=== PATIENT | female | born 2000 | race Caucasian/White ===

== ENCOUNTER 2022-01-23 19:45 | Observation (INO) | payer BC, SELFPAY ==
[2022-01-23 19:47] VITALS: BP 148/118; PULSE 137; RESP 14; TEMP 36.5; O2SAT 97; BMI 34.2
--- NOTE | 2022-01-23 19:59 | EX.ED.DYSGE1 ---
HPI History of Present Illness Chief Complaint: Abscess Detail of Chief Complaint: Left axilla abscess Informant: patient Narrative Narrative: Patient presents to the emergency department with complaint of an abscess in her left armpit that she has had for about a month. Patient was seen in urgent care and referred to the emergency department for incision and drainage. Patient also states that she has had diarrhea for about a week and a half. Patient states she recently also had mono. She denies any fevers or chills. Prior similar symptoms: No PFSH PFSH Home Medications NK 01/23/22 [History Last Taken Unknown] Allergy/AdvReac Type Severity Reaction Status Date / Time amoxicillin AdvReac Rash Verified 01/23/22 19:47 Social History Smoking Status: Never smoker ROS ROS ED Constitutional Constitutional ED: Reports systems reviewed and no addt'l complaints, except as documented; Denies body ache(s), change in weight or chills Eyes Eyes: Denies acute decrease in peripheral vision, change in vision, double vision or loss of vision ENT ENT ED: Reports none; Denies ear pain, lip swelling, loss taste/smell, neck pain, otalgia or sore throat Cardiovascular Cardiovascular: Reports none; Denies abdominal pain, chest pain with activity, leg edema, lightheadedness, palpitations, rapid heart rate or syncope Respiratory/Chest Respiratory/Chest: Reports none; Denies change in mental status, dry cough, dyspnea, hemoptysis, shortness of breath at rest or shortness of breath with exertion Gastrointestinal Gastrointestinal: Reports none and diarrhea; Denies abdominal pain, change in stool character, hematemesis, hematochezia, melena, rectal bleeding or vomiting Genitourinary Genitourinary ED: Reports none; Denies abdominal discomfort, anuria, dysuria, genital pain or polyuria Musculoskeletal Musculoskeletal: Reports none; Denies arthralgias, back pain, difficulty walking, extremity pain, muscle weakness or myalgias Integumentary Reports none, abscess and other Details: Left axilla abscess ; Denies rash Neurologic Neurologic: Reports none; Denies abnormal gait, confusion, focal weakness, frequent falls, headache(s), loss of vision, numbness, paresthesias, radicular pain, vertigo or weakness Psychiatric Psychiatric: Reports systems reviewed and no addt'l complaints, except as documented and none; Denies behavioral changes, confusion, difficulty concentrating, hallucinations, suicidal ideation, tactile hallucinations or visual hallucinations Endocrine Endocrinology: Denies none, cold intolerance, excessive sweating, fatigue or heat intolerance Hematologic/Lymphatic Hematologic/Lymphatic: Reports none; Denies anemia, easy bleeding or easy bruising Allergic/Immunologic Allergic/Immunologic ED: Denies as per HPI, none, lip swelling, mouth swelling, throat swelling, tongue swelling or hives EXAM Physical Exam Const Vital Signs: 01/23/22 19:47 Temperature 97.7 F L Temperature Source Temporal Pulse Rate 137 H Respiratory Rate 14 Blood Pressure 148/118 H Blood Pressure Mean 128 Pulse Ox 97 Oxygen Delivery Method Room Air Positive well nourished and well developed General Appearance ED: well developed and NAD HEENT Reports TM's clear and moist mucous membranes normocephalic and atraumatic; Negative for trauma or tenderness Tympanic Membrane ED: Yes TM's clear Eyes PERRL and EOMs intact bilaterally General Eye ED: Negative for pale conjunctiva or scleral icterus Neck no lymphadenopathy, supple and no JVD General: Negative for tenderness Chest Wall inspection of chest normal and palpation of chest normal Chest: Negative for tenderness Resp normal respiratory effort and clear to auscultation bilaterally Effort and Inspection: Negative for respiratory distress or pain with movement Auscultation: Negative for rhonchi, wheezes or diminished lung sounds Cardio regular rate, regular rhythm, S1 normal heart sound, S2 normal heart sound and no murmurs Peripheral Pulses: pulses 2+ throughout GI normal to inspection, nondistended, normoactive bowel sounds, soft to palpation, non-tender, non-distended and no masses Back/Spine no CVA tenderness and no thoracic nor lumbar tenderness Extremity Extremity Narrative: Evaluation of the left axilla does reveal a abscess at the inferior portion of the axilla with fluctuance and erythema and cellulitic changes. Area of erythema measures approximately 7 cm in diameter. General Extremety ED: Negative for edema General Extremity: Negative for edema Neuro oriented x3, CN's II-XII intact bilaterally, no sensory deficits noted and gait normal Sensorium / Orientation: awake, alert, oriented to person, oriented to place and oriented to time Motor Exam: strength 5/5 throughout and strength abnormal Psych mental status grossly normal Skin no rashes or lesions noted and no wounds MDM MDM MDM Narrative Medical decision making narrative: Established on arrival. Patient was given a liter normal saline bolus. Patient noted to have hypokalemia and was ordered IV potassium. Case will be discussed with hospitalist evaluate patient for admission. Lab Data Attestation: I reviewed the patient's lab results. Labs: Laboratory Results - last 24 hr 01/23/22 01/23/22 01/23/22 20:25 21:27 21:27 WBC 9.6 RBC 4.94 Hgb 13.9 Hct 38.9 MCV 78.7 L MCH 28.1 MCHC 35.7 RDW Std Deviation 39.2 RDW Coeff of Buddy 13.9 Plt Count 311 MPV 9.9 Immature Gran % (Auto) 0.300 Neut % (Auto) 60.3 Lymph % (Auto) 27.1 [place] % (Auto) 11.1 H Eos % (Auto) 0.8 Baso % (Auto) 0.4 Absolute Neuts (auto) 5.8 Absolute Lymphs (auto) 2.61 Nucleated RBC % 0 Sodium Cancelled 138 Potassium Cancelled 2.4 L* Chloride Cancelled 105 Carbon Dioxide Cancelled 22.0 Anion Gap Cancelled 11 BUN Cancelled 8 Creatinine Cancelled 0.62 Estim Creat Clear Calc Cancelled 113.52 Est GFR (MDRD) Af Amer Cancelled 154 Est GFR (MDRD) Non-Af Cancelled 128 BUN/Creatinine Ratio Cancelled 12.8 Glucose Cancelled 93 Calcium Cancelled 8.2 L Procedures Other Procedures Procedure(s): Incision and drainage of left axilla abscess-area sterilely draped and prepped. Skin cleansed with Shur-Clens. Skin anesthetized locally with 1% lidocaine total of 8 cc. Using an 11 blade a 3 cm incision was made into the most fluctuant portion of the suspected abscess and immediately had free-flowing purulent debris expressing from the wound. I was able to milk the wound until no more purulent debris were expressed. Clean dressing was applied. Patient tolerated procedure well. Discharge Plan Triage Chief Complaint: Abscess ED Provider: Lindsey Myers Dx/Rx/DC Orders Clinical Impression: Acute hypokalemia, Diarrhea, Abscess of axilla, left, Tachycardia Prescriptions: No Action NK RF: 0 Primary Care Provider: Care Physician,No Primary Referrals: Care Physician,No Primary [Primary Care Provider] - Disposition Disposition: [facility]
[2022-01-23] MEDS: Lidocaine 1% (20 ml mdv) 20 ML Vial 6 ML INFILT (20:29)
[2022-01-23] MEDS: 0.9% Normal Saline 1,000 ML 1000 ML IV (20:29)
--- NOTE | 2022-01-23 20:40 | NURSING ---
IV in but will not draw enough blood for lab. Will given fluids and try again after procedure done.
[2022-01-23 21:40] LABS: Absolute Lymphocyte Count 2.61 X10^3/uL (0.83-4.51); Absolute Neutrophil Count 5.8 X10^3/uL (2.0-7.7); Basophil# 0.04 X10^3/uL; Basophil% 0.4 % (0-1); Eosinophil# 0.08 X10^3/uL; Eosinophils% 0.8 % (0-5); Hematocrit 38.9 % (37-47); Hemoglobin 13.9 g/dL (12.0-15.0); Lymphocyte # 2.61 X10^3/ul (0.83-4.51); Lymphocyte % 27.1 % (19-41); Mean Corp Hgb Conc 35.7 g/dL (32-36); Mean Corpuscular Hgb 28.1 pg (27.0-32.0); Mean Corpuscular Volume 78.7 fL (81-99); Mean Platelet Vol. 9.9 fl (6.2-12.0); Monocyte# 1.07 X10^3/uL; Monocyte% 11.1 % (0-10); NRBC Flagged by Analyzer 0 % (0-5); Neutrophil % 60.3 % (47-70); POSITIVE MORPHOLOGY YES; Platelet Count 311 K/mm3 (150-450); RBC Distribution Width CV 13.9 % (11.6-14.6); RBC Distribution Width SD 39.2 fl (35.1-43.9); Red Blood Count 4.94 M/mm3 (4.2-5.4); White Blood Count 9.6 K/mm3 (4.4-11.0)
[2022-01-23 21:45] LABS: Differential Indicated SCAN CRITERIA MET
[2022-01-23 22:01] LABS: Anion Gap 11 (5-15); BUN 8 mg/dL (7-18); BUN/Creat Ratio 12.8 RATIO (10-20); Calcium,Total 8.2 mg/dL (8.5-10.1); Chloride 105 mmol/L (98-107); Creatinine, Serum 0.62 mg/dL (0.55-1.02); EST Glomerular Filtration Rate 128 mL/min (>60); Est Glom Filt Rate - Afr Amer 154 mL/min (>60); Estimated Creatinine Clearance 113.52 ml/min; Glucose 93 mg/dL (74-106); Potassium 2.4 mmol/L (3.5-5.1); Sodium Level 138 mmol/L (136-145)
[2022-01-23 22:08] LABS: Differential Comment SCANNED
[2022-01-23] MEDS: Cephalexin 250 MG Capsule 500 MG PO (22:23)
[2022-01-23] MEDS: Potassium Chloride 10mEq/100mL 10 MEQ/100 ML IV.SOLN. 100 MEQ IV BOLUS (22:43)
[2022-01-23 22:46] VITALS: RESP 17
[2022-01-23 22:47] LABS: Magnesium 1.6 mg/dL (1.6-2.6); Phosphorus 2.7 mg/dL (2.5-4.9)
[2022-01-23 22:50] VITALS: BP 121/93; PULSE 116; RESP 17; TEMP 36.9; O2SAT 100
--- NOTE | 2022-01-23 22:51 | PCM.HP.STD ---
Documented by User: FABIAN RosalesC 01/23/22 23:14 HPI - General General Date of Admission: 01/23/22 Date of Service: 01/23/22 Chief Complaint: Nausea vomiting and diarrhea, abscess of the left armpit HPI Narrative CHIKI SÁNCHEZ, is a 21 F who presents with initial complaints of abscess in left armpit. Abscess was incised and drained in ER. Of note patient also states that she was diagnosed with mono approximately 1 month ago. Patient states 2 weeks ago she began to feel better and approximately 1 week ago she began with nausea vomiting and diarrhea which has been going on intermittently for the past week. Initial lab values show severe hypokalemia at 2.4 likely secondary to her nausea vomiting and diarrhea. Phos and mag were within normal range. Patient denies any medical or surgical history. Patient does report that she has an IUD. [facility] Medical History (Updated 01/23/22 @ 23:35 by Natalie Hager) Migraines Home Medications NK 01/23/22 [History Last Taken Unknown] Allergy/AdvReac Type Severity Reaction Status Date / Time amoxicillin AdvReac Rash Verified 01/23/22 19:47 Family History no significant family his no significant family history Surgical History no surgical history no surgical history Social History Smoking Status: Never smoker ROS Constitutional Constitutional: Reports malaise; Denies anorexia, chills, fatigue, fever(s) or weakness Cardiovascular Cardiovascular: Denies chest pain, edema, palpitations or syncope Respiratory/Chest Respiratory/Chest: Denies cough, shortness of breath at rest, shortness of breath with exertion or wheezing Gastrointestinal Gastrointestinal: Reports diarrhea, nausea and vomiting; Denies abdominal pain or constipation Genitourinary Genitourinary: Denies dysuria Musculoskeletal Musculoskeletal: Denies back pain, extremity pain, joint pain or joint stiffness Integumentary Integumentary: Reports wounds; Denies dry skin Neurologic Neurologic: Denies abnormal gait, abnormal speech, confusion or dizziness Psychiatric Psychiatric: Denies anxiety or depression Endocrine Endocrinology: Denies change in body appearance Hematologic/Lymphatic Hematologic/Lymphatic: Denies anemia Vital Signs Vital Signs Vital Signs: 01/23/22 19:47 01/23/22 22:46 Temperature 97.7 F L Temperature Source Temporal Pulse Rate 137 H Respiratory Rate 14 17 Blood Pressure 148/118 H Blood Pressure Mean 128 Pulse Ox 97 Oxygen Delivery Method Room Air Weight Weight: 187 lb Body Mass Index (BMI) 34.2 Physical Exam Const alert, oriented x3 and no apparent distress General Appearance: cooperative HEENT normocephalic and head/scalp atraumatic Eyes conjunctivae normal and no scleral icterus Neck no lymphadenopathy and supple General: trachea midline Resp normal respiratory effort, normal air movement and clear to auscultation bilaterally Cardio regular rate, regular rhythm, S1 normal heart sound, S2 normal heart sound and peripheral pulses 2+ throughout GI normal to inspection, nondistended, normoactive bowel sounds, soft to palpation and non-tender Auscultation: hyperactive bowel sounds Extremity normal capillary refill and no clubbing, cyanosis or edema General Extremity: no tenderness to palpation of joints or extremities Skin Skin Narrative: Incision and drainage to left armpit from prior abscess, drained by ER physician. Dressing dry and intact Wounds: wounds noted Neuro no focal motor deficits and no sensory deficits noted Motor Exam: Negative for general weakness Psych thought process normal, cooperative and affect normal Appearance: appropriate Results Lab / Micro Data Result Diagrams: 01/23/22 21:27 01/23/22 21:27 Labs: Laboratory Results - last 24 hr 01/23/22 20:25: Sodium Cancelled, Potassium Cancelled, Chloride Cancelled, Carbon Dioxide Cancelled, Anion Gap Cancelled, BUN Cancelled, Creatinine Cancelled, Estim Creat Clear Calc Cancelled, Est GFR (MDRD) Af Amer Cancelled, Est GFR (MDRD) Non-Af Cancelled, BUN/Creatinine Ratio Cancelled, Glucose Cancelled, Calcium Cancelled 01/23/22 21:27: WBC 9.6, RBC 4.94, Hgb 13.9, Hct 38.9, MCV 78.7 L, MCH 28.1, MCHC 35.7, RDW Std Deviation 39.2, RDW Coeff of Buddy 13.9, Plt Count 311, MPV 9.9, Immature Gran % (Auto) 0.300, Neut % (Auto) 60.3, Lymph % (Auto) 27.1, [place] % (Auto) 11.1 H, Eos % (Auto) 0.8, Baso % (Auto) 0.4, Absolute Neuts (auto) 5.8, Absolute Lymphs (auto) 2.61, Nucleated RBC % 0, Differential Comment SCANNED 01/23/22 21:27: Sodium 138, Potassium 2.4 L*, Chloride 105, Carbon Dioxide 22.0, Anion Gap 11, BUN 8, Creatinine 0.62, Estim Creat Clear Calc 113.52, Est GFR (MDRD) Af Amer 154, Est GFR (MDRD) Non-Af 128, BUN/Creatinine Ratio 12.8, Glucose 93, Calcium 8.2 L 01/23/22 21:27: Phosphorus 2.7, Magnesium 1.6 Assessment & Plan Assessment/Plan (1) Acute hypokalemia: (2) Diarrhea: QUALIFIERS: Diarrhea type: presumed infectious Qualified Code(s): R19.7 - Diarrhea, unspecified (3) Abscess of axilla, left: PLAN: 1. Acute hypokalemia secondary to excessive diarrhea and vomiting -Admit to [facility] with telemetry secondary to administration of potassium chloride -Potassium chloride 40 mEq IV initiated by ER physician -Magnesium sulfate 2 g IV x1 -Potassium chloride 40 mEq p.o. x1 -CBC, BMP, magnesium, phosphorus level in the a.m. -Enteric pathogen panel ordered -Normal saline 100 mL/h ordered 2. Abscess of left axilla -Patient received Keflex in ER, will continue -Maintain dressing to left armpit and change every 8 hours and as needed DVT prophylaxis-not indicated This patient was seen by Silvia Wilson NP-C under the supervision of Dr. Mclaughlin. 27 minutes spent in clinical coordination of patient's plan of care. Documented by User: Dr. Jef Mclaughlin MD 01/24/22 00:08 HPI - General General Date of Admission: 01/23/22 [facility] Medical History (Updated 01/23/22 @ 23:35 by Natalie Hager) Migraines Home Medications NK 01/23/22 [History Last Taken Unknown] Allergy/AdvReac Type Severity Reaction Status Date / Time amoxicillin AdvReac Rash Verified 01/23/22 19:47 Family History no significant family his Surgical History no surgical history Social History Smoking Status: Never smoker Results Lab / Micro Data Result Diagrams: 01/23/22 21:27 01/23/22 21:27 Charges/Coding Addendum Addendum: Dr. Mclaughlin: I personally reviewed the chart and examined the patient, and agree with the above findings. 21-year-old female presented with an axillary abscess that was drained in the ER, was started on Keflex, however she was also noticed to have a potassium of 2.4. She has been having some diarrhea for about a week. She did had mono prior to this. Magnesium was 1.6 and phosphorus was normal. We will plan on collecting stool samples and continuing with IV fluids and replacing her potassium as well as her magnesium and rechecking electrolytes in the morning. Clinical time spent in all aspects of patient care: 30 minutes Visit Charges OBSV E&M: 57326 Initial observation care L2
[2022-01-23 23:16] VITALS: BMI 35.0
[2022-01-23 23:18] VITALS: BP 133/81; PULSE 109; RESP 18; TEMP 37.4; O2SAT 98
[2022-01-24] VITALS (8 sets, daily range): BP systolic 123–130; BP diastolic 64–70; PULSE 86–118; RESP 18; TEMP 36.8–37.3; O2SAT 100
[2022-01-24] MEDS: Potassium Chloride 10mEq/100mL 10 MEQ/100 ML IV.SOLN. 50 MEQ IV BOLUS ×7 (01:08→16:32)
[2022-01-24] MEDS: Cephalexin 500 MG Capsule PO ×3 (05:22→18:05)
[2022-01-24 06:17] LABS: Absolute Lymphocyte Count 3.09 X10^3/uL (0.83-4.51); Absolute Neutrophil Count 4.8 X10^3/uL (2.0-7.7); Basophil# 0.04 X10^3/uL; Basophil% 0.4 % (0-1); Eosinophil# 0.13 X10^3/uL; Eosinophils% 1.4 % (0-5); Hemoglobin 14.3 g/dL (12.0-15.0); Lymphocyte # 3.09 X10^3/ul (0.83-4.51); Lymphocyte % 33.3 % (19-41); Mean Corp Hgb Conc 35.8 g/dL (32-36); Mean Corpuscular Hgb 28.7 pg (27.0-32.0); Mean Corpuscular Volume 80.3 fL (81-99); Mean Platelet Vol. 10.2 fl (6.2-12.0); Monocyte# 1.19 X10^3/uL; Monocyte% 12.8 % (0-10); NRBC Flagged by Analyzer 0 % (0-5); Neutrophil # 4.81 X10^3/uL (2.7-7.7); Neutrophil % 51.9 % (47-70); POSITIVE MORPHOLOGY YES; Platelet Count 350 K/mm3 (150-450); RBC Distribution Width CV 14.1 % (11.6-14.6); RBC Distribution Width SD 41.1 fl (35.1-43.9); Red Blood Count 4.98 M/mm3 (4.2-5.4); White Blood Count 9.3 K/mm3 (4.4-11.0)
[2022-01-24 06:20] LABS: Differential Indicated SCAN CRITERIA MET
[2022-01-24 06:42] LABS: Differential Comment SCANNED
[2022-01-24 06:44] LABS: Atypical Lymphocyte RARE %
[2022-01-24 06:48] LABS: Anion Gap 10 (5-15); BUN 6 mg/dL (7-18); BUN/Creat Ratio 13.5 RATIO (10-20); Chloride 103 mmol/L (98-107); Creatinine, Serum 0.44 mg/dL (0.55-1.02); EST Glomerular Filtration Rate 188 mL/min (>60); Est Glom Filt Rate - Afr Amer 228 mL/min (>60); Estimated Creatinine Clearance 152.62 ml/min; Glucose 97 mg/dL (74-106); Magnesium 2.6 mg/dL (1.6-2.6); Phosphorus 3.4 mg/dL (2.5-4.9); Potassium 3.1 mmol/L (3.5-5.1); Sodium Level 136 mmol/L (136-145)
--- NOTE | 2022-01-24 07:27 | PN.HOSP_ITS ---
Subjective Subjective Patient is a 21-year-old lady who presented with left axilla abscess which was drained in the ED. She also did complain of a week history of diarrhea and was found to have significant electrolyte abnormalities subsequently admitted to regular nursing floor for further management Objective Data Objective Data Vital Signs: Vital Signs Temp Pulse Resp BP Pulse Ox 98.3 F 88 18 130/65 H 100 01/24/22 03:19 01/24/22 03:19 01/24/22 03:19 01/24/22 03:19 01/24/22 03:19 Oxygen Delivery Method Room Air Weight: 86.4 kg Body Mass Index (BMI) 35.0 Intake & Output: Intake and Output for Last 24 Hours 01/22/22 01/23/22 01/24/22 23:59 23:59 23:59 Intake Total 1000 / 1000 906 / 906 Balance 1000 / 1000 906 / 906 Lab / Micro Data Result Diagrams: 01/24/22 05:36 01/24/22 05:36 Labs: Laboratory Results - last 24 hr 01/23/22 20:25: Sodium Cancelled, Potassium Cancelled, Chloride Cancelled, Carbon Dioxide Cancelled, Anion Gap Cancelled, BUN Cancelled, Creatinine Cancelled, Estim Creat Clear Calc Cancelled, Est GFR (MDRD) Af Amer Cancelled, Est GFR (MDRD) Non-Af Cancelled, BUN/Creatinine Ratio Cancelled, Glucose Cancelled, Calcium Cancelled 01/23/22 21:27: WBC 9.6, RBC 4.94, Hgb 13.9, Hct 38.9, MCV 78.7 L, MCH 28.1, MCHC 35.7, RDW Std Deviation 39.2, RDW Coeff of Buddy 13.9, Plt Count 311, MPV 9.9, Immature Gran % (Auto) 0.300, Neut % (Auto) 60.3, Lymph % (Auto) 27.1, [place] % (Auto) 11.1 H, Eos % (Auto) 0.8, Baso % (Auto) 0.4, Absolute Neuts (auto) 5.8, Absolute Lymphs (auto) 2.61, Nucleated RBC % 0, Differential Comment SCANNED 01/23/22 21:27: Sodium 138, Potassium 2.4 L*, Chloride 105, Carbon Dioxide 22.0, Anion Gap 11, BUN 8, Creatinine 0.62, Estim Creat Clear Calc 113.52, Est GFR (MDRD) Af Amer 154, Est GFR (MDRD) Non-Af 128, BUN/Creatinine Ratio 12.8, Glucose 93, Calcium 8.2 L 01/23/22 21:27: Phosphorus 2.7, Magnesium 1.6 01/24/22 05:36: WBC 9.3, RBC 4.98, Hgb 14.3, Hct 40.0, MCV 80.3 L, MCH 28.7, MC HC 35.8, RDW Std Deviation 41.1, RDW Coeff of Buddy 14.1, Plt Count 350, MPV 10.2, Immature Gran % (Auto) 0.200, Neut % (Auto) 51.9, Lymph % (Auto) 33.3, [place] % (Auto) 12.8 H, Eos % (Auto) 1.4, Baso % (Auto) 0.4, Absolute Neuts (auto) 4.8, Absolute Lymphs (auto) 3.09, Nucleated RBC % 0, Differential Comment SCANNED, Atypical Lymphocytes RARE 01/24/22 05:36: Sodium 136, Potassium 3.1 L, Chloride 103, Carbon Dioxide 23.0, Anion Gap 10, BUN 6 L, Creatinine 0.44 L, Estim Creat Clear Calc 152.62, Est GFR (MDRD) Af Amer 228, Est GFR (MDRD) Non-Af 188, BUN/Creatinine Ratio 13.5, Glucose 97, Calcium 8.0 L, Phosphorus 3.4, Magnesium 2.6 Physical Exam Narrative GENERAL: cooperative HEENT: Atraumatic; EYES; Anicteric, Normal Conjunctiva NECK; supple, normal thyroid, RESPIRATORY: Diminished to auscultation CARDIOVASCULAR: Regular S1 S2, GI: soft, normoactive bowel sounds, : No Renal angle tenderness; EXTREMITIES: Left axilla abscess MUSCULOSKELETAL: no muscle wasting NEURO: Awake; no lateralizing signs. SKIN: No Rash PSYCH; Flat affect Assessment & Plan Assessment/Plan (1) Acute hypokalemia: (2) Diarrhea: QUALIFIERS: Diarrhea type: presumed infectious Qualified Code(s): R19.7 - Diarrhea, unspecified (3) Abscess of axilla, left: PLAN: Patient is a 21-year-old lady who presented with left axilla abscess which was drained in the ED. She also did complain of a week history of diarrh ea and was found to have significant electrolyte abnormalities subsequently admitted to regular nursing floor for further management 1. Left axilla abscess ? Patient had seen and drainage performed in the ED placed on Keflex 2. Acute gastroenteritis ? Treated symptomatically stool studies since 3. Hypokalemia ? Secondary to above corrected per protocol 4. Class II obesity with BMI of 35.1 ? Weight loss advised 5. DVT prophylaxis Low risk did encourage early ambulation Charges/Coding Visit Charges OBSV E&M: 06800 Subsequent observation care L2
[2022-01-24] MEDS: 0.9% Normal Saline 1,000 ML 100 ML IV (09:03)
[2022-01-24] MEDS: Potassium Chloride Oral Soln 20 MEQ/15 ML UDC 40 MEQ PO (09:04)
--- NOTE | 2022-01-24 11:43 | DS.PCM_ITS ---
Providers Date of Admission: 01/23/22 Primary Care Physician: Allyn Primary Care Phys Reason For Visit: HYPOKALEMIA AND DIARRHEA Diagnosis Discharge Diagnosis (1) Acute hypokalemia: Status: Acute Code(s): E87.6 - Hypokalemia (2) Diarrhea: Status: Acute Code(s): R19.7 - Diarrhea, unspecified Qualifiers: Diarrhea type: presumed infectious Qualified Code(s): R19.7 - Diarrhea, unspecified (3) Abscess of axilla, left: Status: Acute Code(s): L02.412 - Cutaneous abscess of left axilla Medications at Discharge Home Medications NK 01/23/22 potassium chloride [Klor-Con M20] 20 meq PO DAILY #7 tab 01/24/22 sulfamethoxazole-trimethoprim [Bactrim DS] 1 tab PO BID #20 tab 01/24/22 Hospital Course Summary of Care Provided Minutes Spent on Discharge: 35 Hospital Course: Patient is a 21-year-old lady who presented with left axilla abscess which was drained in the ED. She also did complain of a week history of diarrhea and was found to have significant electrolyte abnormalities subsequently admitted to regular nursing floor for further management 1. Left axilla abscess ? Patient had seen and drainage performed in the ED -Patient was discharged home on Bactrim DS 2. Acute gastroenteritis ? Treated symptomatically stool studies since 3. Hypokalemia ? Secondary to above corrected per protocol 4. Class II obesity with BMI of 35.1 ? Weight loss advised 5. DVT prophylaxis Low risk did encourage early ambulation Physical Exam Narrative GENERAL: cooperative HEENT: Atraumatic; EYES; Anicteric, Normal Conjunctiva NECK; supple, normal thyroid, RESPIRATORY: Diminished to auscultation CARDIOVASCULAR: Regular S1 S2, GI: soft, normoactive bowel sounds, : No Renal angle tenderness; EXTREMITIES: Left axilla abscess MUSCULOSKELETAL: no muscle wasting NEURO: Awake; no lateralizing signs. SKIN: No Rash PSYCH; Flat affect Medical Records Data Medical Nutrition Assessment Dietitian: Malnutrition Criteria Met Start: 01/24/22 10:39 Freq: Status: Active Protocol: Document 01/24/22 10:39 AG (Rec: 01/24/22 10:39 AG [id number]) Nutrition Malnutrition Evidence of Malnutrition Exists Yes Malnutrition (severe): Acute Illness/Injury Evidenced By Suboptimal Energy Intake ( Severe),Weight Loss (Severe) Clinical Problem Acute Disease or Injury Related Malnutrition Etiology severe, acute malnutrition r/t inadequate energy intake w/ GI dysfunction Signs/Symptoms as evidenced by unintentional wt loss of 19.5#/9.2% x 1 month, estimated PO intake meeting <75% of estimated energy needs x 1 month Status Active Problem Recommendation Dietitian Recommendations/Changes continue regular diet and ensure enlive 120mL 4x/day w/ medpass as tolerated given acute malnutrition Weight / BMI Weight Weight: 86.4 kg Body Mass Index (BMI) 35.0 ABG / Lab / Microbiology Data Result Diagrams: 01/24/22 05:36 01/24/22 05:36 Laboratory: Laboratory Results - last 24 hr 01/23/22 20:25: Sodium Cancelled, Potassium Cancelled, Chloride Cancelled, Carbon Dioxide Cancelled, Anion Gap Cancelled, BUN Cancelled, Creatinine Canc elled, Estim Creat Clear Calc Cancelled, Est GFR (MDRD) Af Amer Cancelled, Est GFR (MDRD) Non-Af Cancelled, BUN/Creatinine Ratio Cancelled, Glucose Cancelled, Calcium Cancelled 01/23/22 21:27: WBC 9.6, RBC 4.94, Hgb 13.9, Hct 38.9, MCV 78.7 L, MCH 28.1, MCHC 35.7, RDW Std Deviation 39.2, RDW Coeff of Buddy 13.9, Plt Count 311, MPV 9.9, Immature Gran % (Auto) 0.300, Neut % (Auto) 60.3, Lymph % (Auto) 27.1, [place] % (Auto) 11.1 H, Eos % (Auto) 0.8, Baso % (Auto) 0.4, Absolute Neuts (auto) 5.8, Absolute Lymphs (auto) 2.61, Nucleated RBC % 0, Differential Comment SCANNED 01/23/22 21:27: Sodium 138, Potassium 2.4 L*, Chloride 105, Carbon Dioxide 22.0, Anion Gap 11, BUN 8, Creatinine 0.62, Estim Creat Clear Calc 113.52, Est GFR (MDRD) Af Amer 154, Est GFR (MDRD) Non-Af 128, BUN/Creatinine Ratio 12.8, Glucose 93, Calcium 8.2 L 01/23/22 21:27: Phosphorus 2.7, Magnesium 1.6 04/20/22 05:36: WBC 9.3, RBC 4.98, Hgb 14.3, Hct 40.0, MCV 80.3 L, MCH 28.7, MCHC 35.8, RDW Std Deviation 41.1, RDW Coeff of Buddy 14.1, Plt Count 350, MPV 10.2, Immature Gran % (Auto) 0.200, Neut % (Auto) 51.9, Lymph % (Auto) 33.3, [place] % (Auto) 12.8 H, Eos % (Auto) 1.4, Baso % (Auto) 0.4, Absolute Neuts (auto) 4.8, Absolute Lymphs (auto) 3.09, Nucleated RBC % 0, Differential Comment SCANNED, Atypical Lymphocytes RARE 01/24/22 05:36: Sodium 136, Potassium 3.1 L, Chloride 103, Carbon Dioxide 23.0, Anion Gap 10, BUN 6 L, Creatinine 0.44 L, Estim Creat Clear Calc 152.62, Est GFR (MDRD) Af Amer 228, Est GFR (MDRD) Non-Af 188, BUN/Creatinine Ratio 13.5, Glucose 97, Calcium 8.0 L, Phosphorus 3.4, Magnesium 2.6 Microbiology: Microbiology 01/24/22 07:30 Stool Enteric Bacteriology - Final D/C Instructions Discharge Diet: No restrictions Discharge Activity: Return to Normal Activity Call your doctor if you observe: Fever of 101 or Higher, Shortness of breath, Fainting spells and Chest pain Meaningful Use Info Meaningful Use Diagnoses (Choose all that apply): None applicable Discharge Plan Admission Admit Date/Time: 01/23/22 22:51 Attending Provider: Lennox Arteaga Primary Care Provider: Care Physician,No Primary Discharge Orders/Prescriptions Prescriptions: New potassium chloride [Klor-Con M20] 20 mEq Tablet,Er Particles/Crystals 20 meq PO DAILY Qty: 7 RF: 0 sulfamethoxazole-trimethoprim [Bactrim DS] 800-160 mg tablet 1 tab PO BID Qty: 20 RF: 0 No Action NK RF: 0 Referrals / Follow Up: Care Physician,No Primary [Primary Care Provider] - Disposition Disposition (needs filled in before D/C Order can be placed): Home, Self Care Charges/Coding Visit Charges OBSV E&M: 76632 Observation care discharge
--- NOTE | 2022-01-24 15:12 | PHA.DC.MC ---
Pharmacy Service has performed discharge medication reconciliation and counseling for this patient. 1. BACTRIM DS 1T PO BID X 10 DAYS 2. POTASSIUM CHLORIDE 20MEQ PO DAILY X 7 DAYS The patient's discharge medication list was reviewed for discrepancies and discrepancies were resolved. Home Medications potassium chloride [Klor-Con M20] 20 meq PO DAILY #7 tab 01/24/22 sulfamethoxazole-trimethoprim [Bactrim DS] 1 tab PO BID #20 tab 01/24/22 The patient was counseled on the following discharge medications and changes in medications for homegoing were reviewed. The Reason for Use, instructions for use, and potential side effects were reviewed for all new medications. The patient's questions regarding all of their medications were answered. The patient was able to verbally demonstrate an understanding of their discharge medications.
== END 2022-01-24 19:10 | disposition home or self-care (01) ==
LOC: ED 22:08 → MS3 22:51
PROVIDERS: Admitting Provider Family Medicine; Emergency Provider Emergency Medicine; Visit Provider Internal Medicine
DX: L02.412 Cutaneous abscess of left axilla (principal); E87.6 Hypokalemia; K52.9 Noninfective gastroenteritis and colitis, unspecified; E66.9 Obesity, unspecified; Z68.35 Body mass index [BMI] 35.0-35.9, adult
CPT/HCPCS: 10060; 36415; 80048; 83735; 84100; 85025; 87506; 96361; 96365; 96366; 97802; 99218; 99283; J7030; J7050; A4216; G0378